=== PATIENT | male | born 1985 | race Two or more races ===

== ENCOUNTER 2019-08-01 10:26 | Inpatient (IN) | payer SELFPAY ==
[2019-08-01] MEDS ORDERED: NORMAL SALINE 1000 ML 1,000 ML IV ONE (10:53)
[2019-08-01 11:01] LABS: HEMATOCRIT 38.1 % (37.9-51.0); HEMOGLOBIN 13.1 g/dL (13.5-17.0); MEAN CORPUSCULAR HEMOGLOBIN 30.6 pg (27.0-33.4); MEAN CORPUSCULAR HGB CONC 34.2 g/dL (32.0-36.0); MEAN CORPUSCULAR VOLUME 89 fl (80-97); PLATELET COUNT 480 10^3/uL (150-450); RED BLOOD COUNT 4.27 10^6/uL (4.35-5.55); RED CELL DISTRIBUTION WIDTH 13.2 % (11.5-14.0); WHITE BLOOD COUNT 16.5 10^3/uL (4.0-10.5)
[2019-08-01 11:17] LABS: VENOUS BLOOD BASE EXCESS 2.8 mmol/L; VENOUS BLOOD PCO2 39.9 mmHg (35-63); VENOUS BLOOD PH 7.45 (7.30-7.42)
[2019-08-01 11:21] LABS: ALBUMIN 3.6 g/dL (3.5-5.0); ALKALINE PHOSPHATASE 90 U/L (38-126); ANION GAP 11 (5-19); ASPARTATE AMINO TRANSFERASE 31 U/L (17-59); BILIRUBIN,DIRECT 0.1 mg/dL (0.0-0.4); BILIRUBIN,TOTAL 0.5 mg/dL (0.2-1.3); BLOOD UREA NITROGEN 15 mg/dL (7-20); CALCIUM 9.1 mg/dL (8.4-10.2); CARBON DIOXIDE 26 mmol/L (22-30); CHLORIDE 98 mmol/L (98-107); CREATINE KINASE 35 U/L (55-170); GLUCOSE 108 mg/dL (75-110); POTASSIUM 4.1 mmol/L (3.6-5.0); TOTAL PROTEIN 7.7 g/dL (6.3-8.2)
--- NOTE | 2019-08-01 11:27 | RADIOLOGY REPORT (SQ) ---
EXAM DESCRIPTION: CHEST SINGLE VIEW IMAGES COMPLETED DATE/TIME: 08/01/2019 11:17 am REASON FOR STUDY: SOB, cough X 2 weeks COMPARISON: None. EXAM PARAMETERS: NUMBER OF VIEWS: One view. TECHNIQUE: Single frontal radiographic view of the chest acquired. RADIATION DOSE: NA LIMITATIONS: None. FINDINGS: LUNGS AND PLEURA: No opacities, masses or pneumothorax. No pleural effusion. MEDIASTINUM AND HILAR STRUCTURES: No masses. Contour normal. HEART AND VASCULAR STRUCTURES: Heart normal in size. Normal vasculature. BONES: No acute findings. HARDWARE: None in the chest. OTHER: No other significant finding. IMPRESSION: NO ACUTE RADIOGRAPHIC FINDING IN THE CHEST. TECHNICAL DOCUMENTATION: JOB ID: [id number] 2010 [employer]- All Rights Reserved Reading location - IP/workstation name: [email or web address]
[2019-08-01 11:48] LABS: ABSOLUTE LYMPHOCYTES# (MANUAL) 1.2 10^3/uL (0.5-4.7); ABSOLUTE MONOCYTES # (MANUAL) 0.8 10^3/uL (0.1-1.4); BASOPHILS % (MANUAL) 0 % (0-2); EOSINOPHILS % (MANUAL) 0 % (0-6); LYMPHOCYTES % (MANUAL) 7 % (13-45); MONOCYTES % (MANUAL) 5 % (3-13); SEGMENTED NEUTROPHILS % (MAN) 88 % (42-78); TOTAL CELLS COUNTED 100
[2019-08-01 11:51] LABS: PLATELET COMMENT ADEQUATE; RBC MORPHOLOGY COMMENT NORMO-CYTIC/CHROMIC
--- NOTE | 2019-08-01 12:18 | RADIOLOGY REPORT (SQ) ---
EXAM DESCRIPTION: CTA CHEST IMAGES COMPLETED DATE/TIME: 08/01/2019 12:08 pm REASON FOR STUDY: TRONCOSO, elevated d-dimer COMPARISON: None. TECHNIQUE: CT scan of the chest performed using helical scanning technique with dynamic intravenous contrast injection. Images reviewed with lung, soft tissue and bone windows. Reconstructed coronal and sagittal MPR images reviewed. Additional 3 dimensional post-processing performed to develop Maximal Intensity Projection images (TN P). All images stored on PACS. All CT scanners at this facility use dose modulation, iterative reconstruction, and/or weight based d osing when appropriate to reduce radiation dose to as low as reasonably achievable (ALARA). [facility]: Dose Right [facility]: CareDose [facility]: Dose Right [facility]: Teradose 4D [facility]: [employer] CONTRAST TYPE AND DOSE: contrast/concentration: Isovue 350.00 mg/ml; Total Contrast Delivered: 51.0 ml; Total Saline Delivered: 70.0 ml Contrast bolus adequate for pulmonary arteries and aorta. RENAL FUNCTION: BUN 15, creatinine 0.69 RADIATION DOSE: CT Rad equipment meets quality standard of care and radiation dose reduction techniq ues were employed. CTDIvol: 13.2 - 14.3 mGy. DLP: 571 mGy-cm. . LIMITATIONS: None. FINDINGS: LUNGS AND PLEURA: There is diffuse bilateral alveolar airspace disease. This could repres ent pneumonia or pulmonary edema. There is both central and peripheral involvement. AORTA AND GREAT VESSELS: No aneurysm. Contrast bolus not optimized for the aorta. HEART: No pericardial effusion. No significant coronary artery calcifications. PULMONARY ARTERIES: No emboli visualized in the main pulmonary arteries or the segmental branches. HILAR AND MEDIASTINAL STRUCTURES: No identified masses or abnormal nodes. HARDWARE: None in the chest. UPPER ABDOMEN: No significant findings. Limited exam. THYROID AND OTHER SOFT TISSUES: No masses. No adenopathy. BONES: No acute or significant finding. 3D MIPS: Confirm above findings. OTHER: No other significant finding. IMPRESSION: 1. No pulmonary emboli. 2. Diffuse bilateral alveolar airspace disease. This could represent pulmonary edema or atypical pn eumonia. There is both peripheral and central involvement. COMMENT: Quality ID # [id number]: Final reports with documentation of one or more dose reduction techniques (e.g., Automated exposure control, adjustment of the mA and/or kV according to patient size, use of iterative reconstruction technique) TECHNICAL DOCUMENTATION: JOB ID: [id number] 2010 [employer]- All Rights Reserved Reading location - IP/workstation name: [email or web address]
[2019-08-01 12:29] LABS: APPEARANCE,URINE SLIGHTLY-CLOUDY; BILIRUBIN,URINE NEGATIVE (NEGATIVE); COLOR,URINE AMBER; GLUCOSE, URINE NEGATIVE (NEGATIVE); KETONES,URINE NEGATIVE (NEGATIVE); LEUKOCYTE ESTERASE,URINE NEGATIVE (NEGATIVE); NITRITE,URINE NEGATIVE (NEGATIVE); PROTEIN,URINE 30 mg/dL (NEGATIVE); URINE SPECIFIC GRAVITY 1.036
[2019-08-01] MEDS ORDERED: PROMETHAZINE HCL INJ 25 MG/1 ML VIAL IV PRN (13:48)
[2019-08-01] MEDS ORDERED: MAGNESIUM HYDROXIDE SUSP 30 ML UDCUP PO PRN (13:48)
[2019-08-01] MEDS ORDERED: ONDANSETRON HCL INJ/PF 4 MG/2 ML SDV IV PRN (13:48)
[2019-08-01] MEDS ORDERED: MAG HYDROX/AL HYDROX/SIMETH SUSP 30 ML UDCUP PO PRN (13:48)
[2019-08-01] MEDS ORDERED: ALBUTEROL SULFATE HFA (90 MCG/PUFF) 8 GM MDI IH PRN (14:01)
[2019-08-01] MEDS ORDERED: ALBUTEROL SULFATE HFA (90 MCG/PUFF) 200 PUFF/8.5 GM MDI IH PRN (14:09)
[2019-08-01] MEDS ORDERED: GUAIFENESIN SYRP 200 MG/10 ML UDC PO PRN (14:29)
--- NOTE | 2019-08-01 14:37 | PDOC H&P ---
History of Present Illness Patient complains of: dyspnea, fever History of Present Illness: YAMILETH CARRENO is a 34 year old male without significant past medical history who presented to the emergency department today with a complaint of 2 weeks of progressively worsening dyspnea and fever. He reports that he has cyclic fevers; occurring at night, with T-max 103. He complains of shortness of breath at rest; significantly worse that with minimal activity, and frequently accompanied by a nonproductive cough. 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 He reports that his significant other was ill with similar symptoms approximately 1 week before he became sick, however, her symptoms lasted only 3 to 4 days. He reports that he was tested negative for COVID19 at an outpatient clinic 7 days ago and was placed on a Z- Iain, prednisone taper, Evaluation in the emergency department today reveals Tachycardia (106) mild hypertension, leukocytosis (WBC 16.5, Seg Neut% 88, Lymphocytes 7, Abs Neut 14.5), d-dimer (1.28) unremarkable chemistry, troponin, proBNP, and urinalysis demonstrating dehydration. CXR unremarkable on read; however on personal review does look subtle pa tchiness. Chest CTA shows diffuse alveolar airspace disease of peripheral and central involvement. He was provided IV fluid bolus and referred to the hospitalist service for admission and management of the above-stated complaints and findings. Past Medical History Medical History: None Past Surgical History Past Surgical History: Reports: None Social History Information Source: Patient Lives with: Spouse/Significant other Smoking Status: Never Smoker Electronic Cigarette use?: No Frequency of Alcohol Use: None Hx Recreational Drug Use: No Hx Prescription Drug Abuse: No - Advance Directive Resuscitation Status: Full Code Family History Family History: None, Reviewed & Not Pertinent Parental Family History Reviewed: Yes Children Family History Reviewed: Yes Sibling(s) Family History Reviewed.: Yes Medication/Allergy Allergies/Adverse Reactions: No Known Allergies Allergy (Verified 08/01/19 10:46) Review of Systems Constitutional: PRESENT: chills, fatigue, fever(s), headache(s). ABSENT: weight gain, weight loss Eyes: ABSENT: visual disturbances Ears: ABSENT: hearing changes Cardiovascular: ABSENT: chest pain, dyspnea on exertion, edema, orthropnea, palpitations Respiratory: PRESENT: cough. ABSENT: hemoptysis Gastrointestinal: PRESENT: diarrhea, nausea, vomiting. ABSENT: abdominal pain, constipation, hematemesis, hematochezia Genitourinary: ABSENT: dysuria, hematuria Musculoskeletal: ABSENT: joint swelling Integumentary: ABSENT: rash, wounds Neurological: ABSENT: abnormal gait, abnormal speech, confusion, dizziness, focal weakness, syncope Psychiatric: ABSENT: anxiety, depression, homidical ideation, suicidal ideation Endocrine: ABSENT: cold intolerance, heat intolerance, polydipsia, polyuria Hematologic/Lymphatic: ABSENT: easy bleeding, easy bruising Physical Exam Vital Signs: Temp Pulse Resp BP Pulse Ox 98.5 F 106 H 20 130/88 H 97 08/01/19 10:47 08/01/19 10:31 08/01/19 10:31 08/01/19 10:31 08/01/19 10:31 Intake & Output 07/31/19 08/01/19 08/02/19 06:59 06:59 06:59 Intake Total 1000 Balance 1000 Weight 59.8 kg General appearance: PRESENT: no acute distress, cooperative, well-developed, well-nourished Head exam: PRESENT: atraumatic, normocephalic Eye exam: PRESENT: conjunctiva pink, EOMI, PERRLA. ABSENT: scleral icterus Mouth exam: PRESENT: moist, tongue midline Throat exam: PRESENT: other - hoarse sounding voice Neck exam: ABSENT: carotid bruit, JVD, lymphadenopathy, thyromegaly Respiratory exam: PRESENT: symmetrical, unlabored, other - shallow respirations, harsh cough. ABSENT: rales, wheezes Cardiovascular exam: PRESENT: RRR. ABSENT: diastolic murmur, rubs, systolic murmur Pulses: PRESENT: normal dorsalis pedis pul Vascular exam: PRESENT: normal capillary refill GI/Abdominal exam: PRESENT: normal bowel sounds, soft. ABSENT: distended, guarding, mass, organolmegaly, rebound, tenderness Rectal exam: PRESENT: deferred Extremities exam: PRESENT: full ROM. ABSENT: calf tenderness, clubbing, pedal edema Neurological exam: PRESENT: alert, awake, oriented to person, oriented to place, oriented to time, oriented to situation, CN II-XII grossly intact. ABSENT: motor sensory deficit Psychiatric exam: PRESENT: anxious, appropriate affect, normal mood. ABSENT: homicidal ideation, suicidal ideation Skin exam: PRESENT: dry, intact, warm. ABSENT: cyanosis, rash Results Laboratory Results: 08/01/19 10:42 08/01/19 10:42 08/01/19 08/01/19 08/01/19 10:42 10:42 10:58 WBC 16.5 H RBC 4.27 L Hgb 13.1 L Hct 38.1 MCV 89 MCH 30.6 MCHC 34.2 RDW 13.2 Plt Count 480 H Seg Neutrophils % Not Reportable VBG pH 7.45 H VBG pCO2 39.9 VBG HCO3 27.0 VBG Base Excess 2.8 Sodium 135.4 L Potassium 4.1 Chloride 98 Carbon Dioxide 26 Anion Gap 11 BUN 15 Creatinine 0.69 Est GFR ( Amer) > 60 Glucose 108 Calcium 9.1 Magnesium 2.3 Total Bilirubin 0.5 AST 31 Alkaline Phosphatase 90 Total Protein 7.7 Albumin 3.6 Urine Color Urine Appearance Urine pH Ur Specific Leslie Urine Protein Urine Glucose (UA) Urine Ketones Urine Blood Urine Nitrite Ur Leukocyte Esterase Urine WBC (Auto) Urine RBC (Auto) 08/01/19 12:10 WBC RBC Hgb Hct MCV MCH MCHC RDW Plt Count Seg Neutrophils % VBG pH VBG pCO2 VBG HCO3 VBG Base Excess Sodium Potassium Chloride Carbon Dioxide Anion Gap BUN Creatinine Est GFR ( Amer) Glucose Calcium Magnesium Total Bilirubin AST Alkaline Phosphatase Total Protein Albumin Urine Color COREY Urine Appearance SLIGHTLY-CLOUDY Urine pH 6.0 Ur Specific Leslie 1.036 Urine Protein 30 H Urine Glucose (UA) NEGATIVE Urine Ketones NEGATIVE Urine Blood NEGATIVE Urine Nitrite NEGATIVE Ur Leukocyte Esterase NEGATIVE Urine WBC (Auto) 4 Urine RBC (Auto) 1 08/01/19 08/01/19 08/01/19 10:42 10:42 10:42 Creatine Kinase 35 L Troponin I < 0.012 NT-Pro-B Natriuret Pep 99 Impressions: Chest X-Ray 08/01/19 10:50 IMPRESSION: NO ACUTE RADIOGRAPHIC FINDING IN THE CHEST. Chest/Abdomen CTA 08/01/19 11:27 IMPRESSION: 1. No pulmonary emboli. 2. Diffuse bilateral alveolar airspace disease. This could represent pulmonary edema or atypical pneumonia. There is both peripheral and central involvement. Assessment and Plan - Diagnosis (1) Pneumonia Qualifiers: Pneumonia type: due to unspecified organism Laterality: bilateral Lung location: unspecified part of lung Qualified Code(s): J18.9 - Pneumonia, unspecified organism Is this a current diagnosis for this admission?: Yes Plan: Patient presents with 14 days of progressively worsening shortness of breath, nonproductive cough, body aches, and fevers. CTA chest shows diffuse alveolar airspace disease of peripheral and central involvement. Treated as an outpatient with oral prednisone and azithromycin; last dose was yesterday. Influenza and COVID pending. Blood and Sputum Cultures pending. We will admit to the medical floor on continuous cardiac telemetry and pulse oximetry. Provide supplemental oxygen as needed to maintain saturations greater than 90%. Start IV Azithromycin and Rocephin; consider escalation pending COVID testing and clinical response. Start scheduled and as needed albuterol MDI. Turn/cough/deep breathe; encourage prone position, incentive spirometer to bedside. Robitussin as needed. (2) Suspected 2019 novel coronavirus infection Is this a current diagnosis for this admission?: Yes Plan: Highly suspicious despite prior outpatient negative testing. Pt with fever, dyspnea, nonproductive cough that have worsened x 14 days; leukocytosis/lymphopenia, elevated d-dimer. Of note, Ferritin is nml. COVID testing pending. Droplet/Contact precautions. Start Vit C, Vit D, Zinc, Melatonin. Remaining management as above. (3) Leukocytosis Qualifiers: Leukocytosis type: unspecified Qualified Code(s): D72.829 - Elevated white blood cell count, unspecified Is this a current diagnosis for this admission?: Yes Plan: Secondary to #1 & 2 Evaluation and management as above. (4) Dehydration Is this a current diagnosis for this admission?: Yes Plan: 1L NS bolus by ED provider. Continue gentle IV fluids. - Time Time Spent with patient: 35 or more minutes Medications reviewed and adjusted accordingly: Yes Anticipated discharge: Home
[2019-08-01] MEDS: CHOLECALCIFEROL (D3) 400 UNIT TABLET PO SCH (14:40)
[2019-08-01] MEDS: ZINC SULFATE 220 MG CAPSULE PO SCH (14:40)
[2019-08-01] MEDS: NORMAL SALINE 1000 ML 1,000 ML IV PRN ×2 (14:47→22:02)
[2019-08-01] MEDS: AZITHROMYCIN 500 MG in DEXTROSE 5%-WATER 250 ML IV SCH (14:49)
[2019-08-01 15:10] LABS: A TYPE INFLUENZA AG NEGATIVE (NEGATIVE); B INFLUENZA AG NEGATIVE (NEGATIVE)
[2019-08-01] MEDS ORDERED: ONDANSETRON HCL INJ/PF 4 MG/2 ML SDV IV ONE (16:12)
[2019-08-01] MEDS ORDERED: ALBUTEROL SULFATE HFA (90 MCG/PUFF) 8 GM MDI IH SCH (18:00)
[2019-08-01] MEDS: ASCORBIC ACID 500 MG TABLET PO SCH (18:31)
--- NOTE | 2019-08-01 18:51 | EKG REPORT ---
SEVERITY:- NORMAL ECG - SINUS RHYTHM ST ELEV, PROBABLE NORMAL EARLY REPOL PATTERN : Confirmed by: Natalie Ayala MD 01-Aug-2019 18:51:17
[2019-08-01] MEDS: CEFTRIAXONE 1 GM/D5W RTU 1 GM/50 ML RTUPB IV SCH (18:55)
[2019-08-01] MEDS: ALBUTEROL SULFATE HFA (90 MCG/PUFF) 200 PUFF/8.5 GM MDI IH SCH (18:58)
[2019-08-01] MEDS ORDERED: LOPERAMIDE HCL 2 MG CAPSULE PO ONE (21:14)
[2019-08-01] MEDS: LACTOBACILLUS ACIDOPHILUS 250 MG TAB PO SCH (21:57)
[2019-08-01] MEDS: FAMOTIDINE 20 MG TABLET PO SCH (21:57)
[2019-08-01] MEDS: ENOXAPARIN SODIUM INJ 60 MG/0.6 ML DISP.SYRIN SUBCUT SCH (22:01)
[2019-08-01] MEDS: MELATONIN 3 MG TABLET PO SCH (22:06)
[2019-08-02] MEDS: ALBUTEROL SULFATE HFA (90 MCG/PUFF) 200 PUFF/8.5 GM MDI IH SCH ×4 (00:17→17:02)
[2019-08-02 04:56] LABS: ABSOLUTE BASOPHILS # (AUTO) 0.1 10^3/uL (0.0-0.2); ABSOLUTE EOSINOPHILS # (AUTO) 0.1 10^3/uL (0.0-0.6); ABSOLUTE LYMPHOCYTES (AUTO) 0.8 10^3/uL (0.5-4.7); ABSOLUTE MONOCYTES (AUTO) 0.5 10^3/uL (0.1-1.4); ABSOLUTE NEUT (AUTO) 11.8 10^3/uL (1.7-8.2); BASOPHILS % (AUTO) 0.6 % (0-2); HEMATOCRIT 34.6 % (37.9-51.0); HEMOGLOBIN 11.9 g/dL (13.5-17.0); MEAN CORPUSCULAR HEMOGLOBIN 30.4 pg (27.0-33.4); MEAN CORPUSCULAR HGB CONC 34.3 g/dL (32.0-36.0); MEAN CORPUSCULAR VOLUME 89 fl (80-97); MONOCYTES % (AUTO) 3.6 % (3-13); PLATELET COUNT 437 10^3/uL (150-450); RED BLOOD COUNT 3.91 10^6/uL (4.35-5.55); RED CELL DISTRIBUTION WIDTH 13.3 % (11.5-14.0); SEGMENTED NEUTROPHILS % (AUTO) 88.8 % (42-78); TOTAL CELLS COUNTED % (AUTO) 100 %; WHITE BLOOD COUNT 13.3 10^3/uL (4.0-10.5)
[2019-08-02 05:11] LABS: ANION GAP 10 (5-19); BLOOD UREA NITROGEN 14 mg/dL (7-20); CALCIUM 8.3 mg/dL (8.4-10.2); CARBON DIOXIDE 22 mmol/L (22-30); CHLORIDE 101 mmol/L (98-107); GLUCOSE 113 mg/dL (75-110); POTASSIUM 4.5 mmol/L (3.6-5.0)
[2019-08-02] MEDS: NORMAL SALINE 1000 ML 1,000 ML IV PRN ×2 (05:56→15:56)
[2019-08-02] MEDS: LACTOBACILLUS ACIDOPHILUS 250 MG TAB PO SCH ×2 (09:45→17:02)
[2019-08-02] MEDS: FAMOTIDINE 20 MG TABLET PO SCH ×2 (09:45→21:47)
[2019-08-02] MEDS: ZINC SULFATE 220 MG CAPSULE PO SCH (09:45)
[2019-08-02] MEDS: ASCORBIC ACID 500 MG TABLET PO SCH ×2 (09:45→17:02)
[2019-08-02] MEDS: CHOLECALCIFEROL (D3) 400 UNIT TABLET PO SCH (09:46)
[2019-08-02] MEDS: ENOXAPARIN SODIUM INJ 60 MG/0.6 ML DISP.SYRIN SUBCUT SCH ×2 (09:46→21:47)
[2019-08-02] MEDS: DOCUSATE SODIUM 100 MG CAPSULE PO SCH (09:46)
[2019-08-02] MEDS: CEFTRIAXONE 1 GM/D5W RTU 1 GM/50 ML RTUPB IV SCH (11:15)
[2019-08-02 11:57] LABS: UNC RESP CORONAVIRUS 229E NOT DETECTED; UNC RESP CORONAVIRUS OC43 NOT DETECTED; UNCRES RHINOVIRUS/ENTEROVIRUS NOT DETECTED
--- NOTE | 2019-08-02 12:23 | PDOC PROGRESS REPORT ---
Subjective Progress Note for:: 08/02/19 Subjective:: YAMILETH CARRENO is a 34 year old male without significant past medical history who was admitted 08/01/2019 with multifocal pneumonia. Patient was seen on morning rounds. He is found resting in bed, lying prone, on room air. He is noted to be tachypneic (RR 22), remaining vital signs are stable. He reports continued dyspnea while at rest that worsens with minimal activity. Complains of productive cough of clear, thin, sputum. T-max 101.0 overnight. He does report his body aches are improved. He denies headache, dizziness, chest pain, palpitations, mela pain, vomiting and diarrhea. He did have emesis overnight; relieved by Zofran. No questions or concerns at this time. Note concerns per nursing. Reason For Visit: LEUKOCYTOSIS,ABNORMAL CHEST CT,PRESUMED COVID-19 Physical Exam Vital Signs: Temp Pulse Resp BP Pulse Ox 99.9 F 120 H 35 H 111/66 95 08/02/19 10:00 08/02/19 08:00 08/02/19 10:07 08/02/19 10:07 08/02/19 10:07 Intake & Output 08/01/19 08/02/19 08/03/19 06:59 06:59 06:59 Intake Total 3624 50 Balance 3624 50 Weight 60.6 kg General appearance: PRESENT: no acute distress, cooperative, thin, well- developed, well-nourished Head exam: PRESENT: atraumatic, normocephalic Eye exam: PRESENT: conjunctiva pink, EOMI, PERRLA. ABSENT: scleral icterus Ear exam: PRESENT: normal external ear exam Mouth exam: PRESENT: moist, tongue midline Neck exam: ABSENT: carotid bruit, JVD, lymphadenopathy, thyromegaly Respiratory exam: PRESENT: clear to auscultation von, symmetrical, tachypnea, unlabored. ABSENT: rales, rhonchi, wheezes Cardiovascular exam: PRESENT: RRR, +S1, +S2. ABSENT: diastolic murmur, rubs, systolic murmur Pulses: PRESENT: normal dorsalis pedis pul Vascular exam: PRESENT: normal capillary refill GI/Abdominal exam: PRESENT: normal bowel sounds, soft. ABSENT: distended, guarding, mass, organolmegaly, rebound, tenderness Rectal exam: PRESENT: deferred Extremities exam: PRESENT: full ROM. ABSENT: calf tenderness, clubbing, pedal edema Neurological exam: PRESENT: alert, awake, oriented to person, oriented to place, oriented to time, oriented to situation, CN II-XII grossly intact. ABSENT: motor sensory deficit Psychiatric exam: PRESENT: appropriate affect, normal mood. ABSENT: homicidal ideation, suicidal ideation Skin exam: PRESENT: dry, intact, warm. ABSENT: cyanosis, rash Results Laboratory Results: 08/02/19 04:45 08/02/19 04:45 08/01/19 08/01/19 08/02/19 10:42 12:10 04:45 WBC 13.3 H RBC 3.91 L Hgb 11.9 L Hct 34.6 L MCV 89 MCH 30.4 MCHC 34.3 RDW 13.3 Plt Count 437 Seg Neutrophils % 88.8 H Sodium Potassium Chloride Carbon Dioxide Anion Gap BUN Creatinine Est GFR ( Amer) Glucose Calcium Ferritin 301.00 Urine Color COREY Urine Appearance SLIGHTLY-CLOUDY Urine pH 6.0 Ur Specific Acra 1.036 Urine Protein 30 H Urine Glucose (UA) NEGATIVE Urine Ketones NEGATIVE Urine Blood NEGATIVE Urine Nitrite NEGATIVE Ur Leukocyte Esterase NEGATIVE Urine WBC (Auto) 4 Urine RBC (Auto) 1 08/02/19 04:45 WBC RBC Hgb Hct MCV MCH MCHC RDW Plt Count Seg Neutrophils % Sodium 133.2 L Potassium 4.5 Chloride 101 Carbon Dioxide 22 Anion Gap 10 BUN 14 Creatinine 0.83 Est GFR ( Amer) > 60 Glucose 113 H Calcium 8.3 L Ferritin Urine Color Urine Appearance Urine pH Ur Specific Acra Urine Protein Urine Glucose (UA) Urine Ketones Urine Blood Urine Nitrite Ur Leukocyte Esterase Urine WBC (Auto) Urine RBC (Auto) 08/01/19 08/01/19 08/01/19 10:42 10:42 10:42 Creatine Kinase 35 L Troponin I < 0.012 NT-Pro-B Natriuret Pep 99 Impressions: Chest X-Ray 08/01/19 10:50 IMPRESSION: NO ACUTE RADIOGRAPHIC FINDING IN THE CHEST. Chest/Abdomen CTA 08/01/19 11:27 IMPRESSION: 1. No pulmonary emboli. 2. Diffuse bilateral alveolar airspace disease. This could represent pulmonary edema or atypical pneumonia. There is both peripheral and central involvement. Assessment and Plan - Diagnosis (1) Pneumonia Qualifiers: Pneumonia type: due to unspecified organism Laterality: bilateral Lung location: unspecified part of lung Qualified Code(s): J18.9 - Pneumonia, unspecified organism Is this a current diagnosis for this admission?: Yes Plan: Patient presents with 14 days of progressively worsening shortness of breath, nonproductive cough, body aches, and fevers. CTA chest shows diffuse alveolar airspace disease of peripheral and central involvement. Treated as an outpatient with oral prednisone and azithromycin; last dose was yesterday. Influenza negative. Rapid COVID negative; sent out for confirmation pending. Respiratory viral panel pending. 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 Blood and Sputum Cultures pending. Patient denies E cigarettes/vaping; low suspicion for vaping injury. We will admit to the medical floor on continuous cardiac telemetry and pulse oximetry. Provide supplemental oxygen as needed to maintain saturations greater than 90%. Continue IV Azithromycin and Rocephin; consider escalation pending COVID testing and clinical response. Continue scheduled and as needed albuterol MDI. Turn/cough/deep breathe; encourage prone position, incentive spirometer to bedside. Robitussin as needed. (2) Suspected 2019 novel coronavirus infection Is this a current diagnosis for this admission?: Yes Plan: Highly suspicious despite prior outpatient negative testing. Pt with fever, dyspnea, nonproductive cough that have worsened x 14 days; leukocytosis/lymphopenia, elevated d-dimer. Of note, Ferritin is nml. COVID testing negative; sent out for confirmation pending. Droplet/Contact precautions. Start Vit C, Vit D, Zinc, Melatonin. Remaining management as above. (3) Leukocytosis Qualifiers: Leukocytosis type: unspecified Qualified Code(s): D72.829 - Elevated white blood cell count, unspecified Is this a current diagnosis for this admission?: Yes Plan: Secondary to #1 & 2 Evaluation and management as above. (4) Dehydration Is this a current diagnosis for this admission?: Yes Plan: Resolved. 1L NS bolus by ED provider. Continue gentle IV fluids. - Time Time Spent with patient: 35 or more minutes Medications reviewed and adjusted accordingly: Yes Anticipated discharge: Home Within: within 48 hours
[2019-08-02] MEDS: AZITHROMYCIN 500 MG in DEXTROSE 5%-WATER 250 ML IV SCH (14:12)
[2019-08-02] MEDS: ACETAMINOPHEN 325 MG TABLET PO PRN (17:16)
[2019-08-02] MEDS ORDERED: IBUPROFEN 600 MG TABLET PO PRN (18:17)
[2019-08-02] MEDS ORDERED: GUAIFENESIN/CODEINE PHOS 100-10 MG/ 5 ML UDC PO PRN (18:18)
[2019-08-02] MEDS: MELATONIN 3 MG TABLET PO SCH (21:48)
[2019-08-03] MEDS: ALBUTEROL SULFATE HFA (90 MCG/PUFF) 200 PUFF/8.5 GM MDI IH SCH ×5 (00:30→23:30)
[2019-08-03] MEDS: NORMAL SALINE 1000 ML 1,000 ML IV PRN ×2 (04:41→17:54)
[2019-08-03 05:52] LABS: HEMATOCRIT 33.6 % (37.9-51.0); HEMOGLOBIN 11.6 g/dL (13.5-17.0); MEAN CORPUSCULAR HEMOGLOBIN 30.7 pg (27.0-33.4); MEAN CORPUSCULAR HGB CONC 34.4 g/dL (32.0-36.0); MEAN CORPUSCULAR VOLUME 89 fl (80-97); PLATELET COUNT 358 10^3/uL (150-450); RED BLOOD COUNT 3.77 10^6/uL (4.35-5.55); RED CELL DISTRIBUTION WIDTH 13.5 % (11.5-14.0); WHITE BLOOD COUNT 7.9 10^3/uL (4.0-10.5)
--- NOTE | 2019-08-03 08:14 | RADIOLOGY REPORT (SQ) ---
EXAM DESCRIPTION: CHEST SINGLE VIEW IMAGES COMPLETED DATE/TIME: 08/03/2019 8:00 am REASON FOR STUDY: dyspnea COMPARISON: 08/01/2019 FINDINGS: One-view chest AP portable upright. Lungs are hyperinflated. Mild interstitial prominence, predominantly in the upper lung gonzalez. Exte nt of disease better defined in CT from 2 days ago. Heart size looks normal and there is no significant vascular congestion or pleural effusion. Depending on clinical presentation, consider atypical pneumonia predominantly. Lung bases are relatively clear. No pneumothorax. TECHNICAL DOCUMENTATION: JOB ID: [id number] Reading location - IP/workstation name: [email or web address]
[2019-08-03] MEDS: DOCUSATE SODIUM 100 MG CAPSULE PO SCH (09:01)
[2019-08-03] MEDS: FAMOTIDINE 20 MG TABLET PO SCH ×2 (10:15→21:24)
[2019-08-03] MEDS: ASCORBIC ACID 500 MG TABLET PO SCH ×2 (10:15→17:50)
[2019-08-03] MEDS: ENOXAPARIN SODIUM INJ 60 MG/0.6 ML DISP.SYRIN SUBCUT SCH ×2 (10:15→21:23)
[2019-08-03] MEDS: ZINC SULFATE 220 MG CAPSULE PO SCH (10:15)
[2019-08-03] MEDS: LACTOBACILLUS ACIDOPHILUS 250 MG TAB PO SCH ×2 (10:15→17:50)
[2019-08-03] MEDS: CHOLECALCIFEROL (D3) 400 UNIT TABLET PO SCH (10:15)
[2019-08-03] MEDS: CEFTRIAXONE 1 GM/D5W RTU 1 GM/50 ML RTUPB IV SCH (11:01)
[2019-08-03] MEDS: AZITHROMYCIN 500 MG in DEXTROSE 5%-WATER 250 ML IV SCH (15:28)
--- NOTE | 2019-08-03 16:53 | PDOC PROGRESS REPORT ---
Subjective Progress Note for:: 08/03/19 Subjective:: YAMILETH CARRENO is a 34 year old male without significant past medical history who was admitted 08/01/2019 with multifocal pneumonia. Patient was seen on afternoon rounds. He is found resting in bed, lying prone, on supplemental oxygen via NC. He reports continued dyspnea while at rest that worsens with minimal activity. Reports that after providing himself a bed bath this morning, he became extremely exhausted and slept several hours to recover. Continues to have productive cough of clear, thin, sputum. He does report that his cough frequency/intensity seemed to improve immediately upon addition of O2 (he was also noted to have a rapid improvement in his RR and HR). He denies headache, dizziness, chest pain, palpitations, mela pain, vomiting and diarrhea. No questions or concerns at this time. Note concerns per nursing. Reason For Visit: LEUKPCYTOSIS,ABNORMAL CHEST CT,PNEUMONIA,SUSPECTED Physical Exam Vital Signs: Temp Pulse Resp BP Pulse Ox 97.8 F 63 15 112/63 100 08/03/19 15:35 08/03/19 15:35 08/03/19 15:35 08/03/19 15:35 08/03/19 15:35 Intake & Output 08/02/19 08/03/19 08/04/19 06:59 06:59 06:59 Intake Total 3624 2956 470 Balance 3624 2956 470 Weight 60.6 kg 60.9 kg General appearance: PRESENT: no acute distress, cooperative, thin, well- developed, well-nourished Head exam: PRESENT: atraumatic, normocephalic Eye exam: PRESENT: conjunctiva pink, EOMI, PERRLA. ABSENT: scleral icterus Mouth exam: PRESENT: moist, tongue midline Respiratory exam: PRESENT: symmetrical, unlabored, wheezes - inspiratory wheeze to right, other - hollow. ABSENT: rales, rhonchi Cardiovascular exam: PRESENT: bradycardia, RRR, +S1. ABSENT: diastolic murmur, rubs, systolic murmur Pulses: PRESENT: normal dorsalis pedis pul Vascular exam: PRESENT: normal capillary refill Extremities exam: PRESENT: full ROM. ABSENT: calf tenderness, clubbing, pedal edema Neurological exam: PRESENT: alert, awake, oriented to person, oriented to place, oriented to time, oriented to situation, CN II-XII grossly intact. ABSENT: motor sensory deficit Psychiatric exam: PRESENT: appropriate affect, normal mood. ABSENT: homicidal ideation, suicidal ideation Skin exam: PRESENT: dry, intact, warm. ABSENT: cyanosis, rash Results Laboratory Results: 08/03/19 05:24 08/02/19 04:45 08/03/19 05:24 WBC 7.9 RBC 3.77 L Hgb 11.6 L Hct 33.6 L MCV 89 MCH 30.7 MCHC 34.4 RDW 13.5 Plt Count 358 08/01/19 08/01/19 08/01/19 10:42 10:42 10:42 Creatine Kinase 35 L Troponin I < 0.012 NT-Pro-B Natriuret Pep 99 Impressions: Chest/Abdomen CTA 08/01/19 11:27 IMPRESSION: 1. No pulmonary emboli. 2. Diffuse bilateral alveolar airspace disease. This could represent pulmonary edema or atypical pneumonia. There is both peripheral and central involvement. Assessment and Plan - Diagnosis (1) Pneumonia Qualifiers: Pneumonia type: due to unspecified organism Laterality: bilateral Lung location: unspecified part of lung Qualified Code(s): J18.9 - Pneumonia, unspecified organism Is this a current diagnosis for this admission?: Yes Plan: Continues to have profound fatigue and dyspnea w/ minimal activity, tachycardia/tachypnea when not on supplemental oxygen, and high grade fevers. TMax 103.0/24 hrs Patient presents with 14 days of progressively worsening shortness of breath, nonproductive cough, body aches, and fevers. CTA chest shows diffuse alveolar airspace disease of peripheral and central involvement. CXR lungs are hyperinflated with mild interstitial prominence, predominantly in the upper lung gonzalez. Influenza negative. Rapid COVID negative; sent out for confirmation pending. 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 Blood culture shows gram (+) cocci clusters (1/4 bottles; likely contaminant) Sputum Cultures shows yeast; not ishan Gold TB pending; low suspicion Patient denies E cigarettes/vaping; low suspicion for vaping injury. We will admit to the medical floor on continuous cardiac telemetry and pulse oximetry. Provide supplemental oxygen. Although patient was maintaining oxygen saturations greater than 90%, upon application of supplemental oxygen via nasal cannula at 2 L/min his HR decreased from an average 120 to 60 and RR from 34 to 16 Continue IV Azithromycin and Rocephin; consider escalation pending COVID testing and clinical response. Difflucan 200 mg daily x 3 days Continue scheduled and as needed albuterol MDI. Turn/cough/deep breathe; encourage prone position, incentive spirometer to bedside. Robitussin as needed. Infectious Disease is consulted. (2) Suspected 2019 novel coronavirus infection Is this a current diagnosis for this admission?: Yes Plan: Highly suspicious despite prior outpatient negative testing. Pt with fever, dyspnea, nonproductive cough that have worsened x 14 days; leukocytosis/lymphopenia, elevated d-dimer. Of note, Ferritin is nml. COVID testing negative; sent out for confirmation pending. Droplet/Contact precautions. Start Vit C, Vit D, Zinc, Melatonin. Full dose Lovenox Remaining management as above. (3) Leukocytosis Qualifiers: Leukocytosis type: unspecified Qualified Code(s): D72.829 - Elevated white blood cell count, unspecified Is this a current diagnosis for this admission?: Yes Plan: Resolved. Secondary to #1 & 2 Evaluation and management as above. (4) Dehydration Is this a current diagnosis for this admission?: Yes Plan: Resolved. 1L NS bolus by ED provider. Continue gentle IV fluids. - Time Time Spent with patient: 25-34 minutes Medications reviewed and adjusted accordingly: Yes Anticipated discharge: Home
[2019-08-03] MEDS: ACETAMINOPHEN 325 MG TABLET PO PRN (21:24)
[2019-08-03] MEDS: MELATONIN 3 MG TABLET PO SCH (21:24)
[2019-08-04] MEDS: ACETAMINOPHEN 325 MG TABLET PO PRN (04:56)
[2019-08-04] MEDS: ALBUTEROL SULFATE HFA (90 MCG/PUFF) 200 PUFF/8.5 GM MDI IH SCH ×2 (06:39→12:13)
[2019-08-04 06:47] LABS: HEMATOCRIT 34.5 % (37.9-51.0); HEMOGLOBIN 12.1 g/dL (13.5-17.0); MEAN CORPUSCULAR VOLUME 89 fl (80-97); PLATELET COUNT 412 10^3/uL (150-450); RED BLOOD COUNT 3.89 10^6/uL (4.35-5.55); RED CELL DISTRIBUTION WIDTH 13.5 % (11.5-14.0); WHITE BLOOD COUNT 8.4 10^3/uL (4.0-10.5)
[2019-08-04 09:34] LABS: APPEARANCE,URINE CLEAR; BILIRUBIN,URINE NEGATIVE (NEGATIVE); COLOR,URINE STRAW; GLUCOSE, URINE NEGATIVE (NEGATIVE); KETONES,URINE NEGATIVE (NEGATIVE); LEUKOCYTE ESTERASE,URINE NEGATIVE (NEGATIVE); NITRITE,URINE NEGATIVE (NEGATIVE); PROTEIN,URINE NEGATIVE (NEGATIVE); URINE SPECIFIC GRAVITY 1.008; UROBILINOGEN,URINE NEGATIVE mg/dL (<2.0)
[2019-08-04] MEDS ORDERED: PREDNISONE 20 MG TABLET PO SCH (10:00)
[2019-08-04] MEDS: FAMOTIDINE 20 MG TABLET PO SCH (10:03)
[2019-08-04] MEDS: ZINC SULFATE 220 MG CAPSULE PO SCH (10:03)
[2019-08-04] MEDS: CHOLECALCIFEROL (D3) 400 UNIT TABLET PO SCH (10:03)
[2019-08-04] MEDS: ENOXAPARIN SODIUM INJ 60 MG/0.6 ML DISP.SYRIN SUBCUT SCH (10:03)
[2019-08-04] MEDS: ASCORBIC ACID 500 MG TABLET PO SCH (10:03)
[2019-08-04] MEDS: DOCUSATE SODIUM 100 MG CAPSULE PO SCH (10:04)
[2019-08-04] MEDS: LACTOBACILLUS ACIDOPHILUS 250 MG TAB PO SCH (10:06)
[2019-08-04] MEDS: CEFTRIAXONE 1 GM/D5W RTU 1 GM/50 ML RTUPB IV SCH (12:12)
[2019-08-04 15:54] VITALS: BP 112/74
[2019-08-04] MEDS: AZITHROMYCIN 500 MG in DEXTROSE 5%-WATER 250 ML IV SCH (16:41)
[2019-08-04] MEDS ORDERED: FLUCONAZOLE 100 MG TABLET PO SCH (17:00)
--- NOTE | 2019-08-04 18:50 | PDOC DISCHARGE SUMMARY ---
Impression - Admit/DC Date/PCP Admission Date/Primary Care Provider: 08/01/19 13:56 Discharge Date: 08/04/19 - Discharge Diagnosis (1) Pneumonia Is this a current diagnosis for this admission?: Yes (2) Suspected 2019 novel coronavirus infection Is this a current diagnosis for this admission?: Yes (3) Leukocytosis Is this a current diagnosis for this admission?: Yes (4) Dehydration Is this a current diagnosis for this admission?: Yes (5) Pneumonitis Is this a current diagnosis for this admission?: Yes - Additional Information Resuscitation Status: Full Code Discharge Diet: Regular Discharge Activity: Activity As Tolerated, Balance Activity w/Rest Referrals: SLIME NOBLE MD [ACTIVE STAFF] - (Follow up w/ Dr. Noble at the earliest available appointment for further evaluaion of/for viral pneumonitis vs vasculitis) AYLA CALDERON MD [ACTIVE STAFF] - (Sticker put in book for follow-up. [id number]) Prescriptions: Methylprednisolone [Medrol Dosepack (4 mg/Tab) 21 Tab/Dosepak] 4 mg PO ASDIR PRN #21 tab.ds.pk PRN Reason: Albuterol Sulfate [Proair HFA Inhalation Aerosol 8.5 gm MDI] 2 puff IH Q4HP PRN #1 hfa.[email or web address] PRN Reason: Home Medications: Acetaminophen [Tylenol 325 mg Tablet] 650 mg PO Q4HP PRN tablet 08/04/19 Albuterol Sulfate [Proair HFA Inhalation Aerosol 8.5 gm MDI] 2 puff IH Q4HP PRN #1 hfa.aer.ad 08/04/19 Methylprednisolone [Medrol Dosepack (4 mg/Tab) 21 Tab/Dosepak] 4 mg PO ASDIR PRN #21 tab.ds.pk 08/04/19 History of Present Illiness History of Present Illness: YAMILETH CARRENO is a 34 year old male without significant past medical history who presented to the emergency department today with a complaint of 2 weeks of progressively worsening dyspnea and fever. He reports that he has cyclic fevers; occurring at night, with T-max 103. He complains of shortness of breath at rest; significantly worse that with minimal activity, and frequently accompanied by a nonproductive cough. 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 He reports that his significant other was ill with similar symptoms approximately 1 week before he became sick, however, her symptoms lasted only 3 to 4 days. He reports that he was tested negative for COVID19 at an outpatient clinic 7 days ago and was placed on a Z- Iain, prednisone taper, Evaluation in the emergency department today reveals Tachycardia (106) mild hypertension, leukocytosis (WBC 16.5, Seg Neut% 88, Lymphocytes 7, Abs Neut 14.5), d-dimer (1.28) unremarkable chemistry, troponin, proBNP, and urinalysis demonstrating dehydration. CXR unremarkable on read; however on personal review does look subtle patchiness. Chest CTA shows diffuse alveolar airspace disease of peripheral and central involvement. He was provided IV fluid bolus and referred to the hospitalist service for admission and management of the above-stated complaints and findings. Hospital Course Hospital Course: (1) Pneumonia Significantly improved. Continues to have fatigue and dyspnea w/ activity, though significantly improved. Tachycardia/tachypnea when not on supplemental oxygen has resolved. Afebrile x 24 hrs. TMax 103.0/48 hrs Patient presented with 14 days of progressively worsening shortness of breath, nonproductive cough, body aches, and fevers. CTA chest shows diffuse alveolar airspace disease of peripheral and central involvement. CXR lungs are hyperinflated with mild interstitial prominence, predominantly in the upper lung gonzalez. Influenza negative. Rapid COVID negative; sent out for confirmation also negative. Respiratory viral panel negative Legionella negative. Blood culture shows staph epi. (1/4 bottles) Sputum Cultures shows yeast; not ishan Gold TB pending; low suspicion HIV negative Patient denies E cigarettes/vaping; low suspicion for vaping injury. He was admitted to the medical floor on continuous cardiac telemetry and pulse oximetry. He was provided supplemental oxygen for symptom management with rapid improvement in tachycardia and tachypnea. Oxygen was weaned as tolerated; he is now ambulatory on room air without hypoxia, tachypnea, or tachycardia. He did report mild dyspnea. He was placed on IV Azithromycin and Rocephin; no indications for antibiotic therapy following discharge. Between his outpatient Z-Iain and azithromycin received during this admission he has received 8 days of azithromycin in the last week and a half. Difflucan 200 mg x1 for yeast noted on sputum culture. He was provided scheduled and as needed albuterol MDI; refill prescription provided at discharge. Turn/cough/deep breathe; encourage prone position, incentive spirometer to bedside. Robitussin as needed. (2) Suspected 2019 novel coronavirus infection Highly suspicious despite negative testing. Pt with fever, dyspnea, nonproductive cough that have worsened x 14 days; leukocytosis/lymphopenia, elevated d-dimer. Of note, Ferritin is nml. COVID testing negative Send out COVID testing also negative. This patient has tested negative for COVID 3 times He was placed on Vit C, Vit D, Zinc, Melatonin. Full dose Lovenox during admission; no need for outpatient anticoagulant as CTA was negative for PE. Remaining management as above. (3) Leukocytosis Resolved. Secondary to #1 & 2 Evaluation and management as above. (4) Dehydration Resolved. 1L NS bolus by ED provider. Continue gentle IV fluids. (5) Pneumonitis Questionable viral pneumonitis vs pulmonary vasculitis vs ANCA. ESR 118, CRP 153 ANCA panel pending Discharged with Merdol dose pack. Strongly recommend pulmonology follow up. Physical Exam Vital Signs: Temp Pulse Resp BP Pulse Ox 97.5 F 66 18 112/74 100 08/04/19 15:53 08/04/19 15:53 08/04/19 15:53 08/04/19 15:53 08/04/19 15:53 Intake & Output 08/03/19 08/04/19 08/05/19 06:59 06:59 06:59 Intake Total 2956 3142 1520 Balance 2956 3142 1520 Weight 60.9 kg 60.6 kg General appearance: PRESENT: no acute distress, cooperative, thin, well- developed, well-nourished Head exam: PRESENT: atraumatic, normocephalic Eye exam: PRESENT: conjunctiva pink, EOMI, PERRLA. ABSENT: scleral icterus Ear exam: PRESENT: normal external ear exam Mouth exam: PRESENT: moist, tongue midline Respiratory exam: PRESENT: clear to auscultation von, symmetrical, unlabored, other - hollow. Maintaing 02 sat while ambulating on RA.. ABSENT: rales, rhonchi, wheezes Cardiovascular exam: PRESENT: RRR. ABSENT: diastolic murmur, rubs, systolic murmur Pulses: PRESENT: normal dorsalis pedis pul Vascular exam: PRESENT: normal capillary refill GI/Abdominal exam: PRESENT: normal bowel sounds, soft. ABSENT: distended, guarding, mass, organolmegaly, rebound, tenderness Rectal exam: PRESENT: deferred Extremities exam: PRESENT: full ROM. ABSENT: calf tenderness, clubbing, pedal edema Musculoskeletal exam: PRESENT: ambulatory Neurological exam: PRESENT: alert, awake, oriented to person, oriented to place, oriented to time, oriented to situation, CN II-XII grossly intact. ABSENT: motor sensory deficit Psychiatric exam: PRESENT: appropriate affect, normal mood. ABSENT: homicidal ideation, suicidal ideation Skin exam: PRESENT: dry, intact, warm. ABSENT: cyanosis, rash Results Laboratory Results: WBC 8.4 10^3/uL (4.0-10.5) 08/04/19 06:36 RBC 3.89 10^6/uL (4.35-5.55) L 08/04/19 06:36 Hgb 12.1 g/dL (13.5-17.0) L 08/04/19 06:36 Hct 34.5 % (37.9-51.0) L 08/04/19 06:36 MCV 89 fl (80-97) 08/04/19 06:36 MCH 31.0 pg (27.0-33.4) 08/04/19 06:36 MCHC 35.0 g/dL (32.0-36.0) 08/04/19 06:36 RDW 13.5 % (11.5-14.0) 08/04/19 06:36 Plt Count 412 10^3/uL (150-450) 08/04/19 06:36 Lymph % (Auto) 6.0 % (13-45) L 08/02/19 04:45 [place] % (Auto) 3.6 % (3-13) 08/02/19 04:45 Eos % (Auto) 1.0 % (0-6) 08/02/19 04:45 Baso % (Auto) 0.6 % (0-2) 08/02/19 04:45 Absolute Neuts (auto) 11.8 10^3/uL (1.7-8.2) H 08/02/19 04:45 Absolute Lymphs (auto) 0.8 10^3/uL (0.5-4.7) 08/02/19 04:45 Absolute Monos (auto) 0.5 10^3/uL (0.1-1.4) 08/02/19 04:45 Absolute Eos (auto) 0.1 10^3/uL (0.0-0.6) 08/02/19 04:45 Absolute Basos (auto) 0.1 10^3/uL (0.0-0.2) 08/02/19 04:45 Total Counted 100 08/01/19 10:42 Seg Neutrophils % 88.8 % (42-78) H 08/02/19 04:45 Seg Neuts % (Manual) 88 % (42-78) H 08/01/19 10:42 Lymphocytes % (Manual) 7 % (13-45) L 08/01/19 10:42 Monocytes % (Manual) 5 % (3-13) 08/01/19 10:42 Eosinophils % (Manual) 0 % (0-6) 08/01/19 10:42 Basophils % (Manual) 0 % (0-2) 08/01/19 10:42 Abs Neuts (Manual) 14.5 10^3/uL (1.7-8.2) H 08/01/19 10:42 Abs Lymphs (Manual) 1.2 10^3/uL (0.5-4.7) 08/01/19 10:42 Abs Monocytes (Manual) 0.8 10^3/uL (0.1-1.4) 08/01/19 10:42 Absolute Eos (Manual) 0.0 10^3/uL (0.0-0.6) 08/01/19 10:42 Abs Basophils (Manual) 0.0 10^3/uL (0.0-0.2) 08/01/19 10:42 Platelet Comment ADEQUATE 08/01/19 10:42 RBC Morph Comment NORMO-CYTIC/CHROMIC 08/01/19 10:42 ESR 118 mm/hr (0-15) H 08/04/19 11:38 D-Dimer 1.28 ug/mL (0.00-0.50) H 08/01/19 10:42 VBG pH 7.45 (7.30-7.42) H 08/01/19 10:58 VBG pCO2 39.9 mmHg (35-63) 08/01/19 10:58 VBG HCO3 27.0 mmol/L (20-32) 08/01/19 10:58 VBG Base Excess 2.8 mmol/L 08/01/19 10:58 Sodium 133.2 mmol/L (137-145) L 08/02/19 04:45 Potassium 4.5 mmol/L (3.6-5.0) 08/02/19 04:45 Chloride 101 mmol/L (98-107) 08/02/19 04:45 Carbon Dioxide 22 mmol/L (22-30) 08/02/19 04:45 Anion Gap 10 (5-19) 08/02/19 04:45 BUN 14 mg/dL (7-20) 08/02/19 04:45 Creatinine 0.83 mg/dL (0.52-1.25) 08/02/19 04:45 Est GFR ( Amer) > 60 (>60) 08/02/19 04:45 Est GFR (MDRD) Non-Af > 60 (>60) 08/02/19 04:45 Glucose 113 mg/dL (75-110) H 08/02/19 04:45 Calcium 8.3 mg/dL (8.4-10.2) L 08/02/19 04:45 Magnesium 2.3 mg/dL (1.6-2.3) 08/01/19 10:42 Ferritin 301.00 ng/mL (17.9-464.0) 08/01/19 10:42 Total Bilirubin 0.5 mg/dL (0.2-1.3) 08/01/19 10:42 Direct Bilirubin 0.1 mg/dL (0.0-0.4) 08/01/19 10:42 Neonat Total Bilirubin Not Reportable 08/01/19 10:42 Neonat Direct Bilirubin Not Reportable 08/01/19 10:42 Neonat Indirect Bili Not Reportable 08/01/19 10:42 AST 31 U/L (17-59) 08/01/19 10:42 ALT 47 U/L (<50) 08/01/19 10:42 Alkaline Phosphatase 90 U/L (38-126) 08/01/19 10:42 Creatine Kinase 35 U/L (55-170) L 08/01/19 10:42 Troponin I < 0.012 ng/mL 08/01/19 10:42 C-Reactive Protein 153.0 mg/L (<10.0) H 08/04/19 11:38 NT-Pro-B Natriuret Pep 99 pg/mL (<125) 08/01/19 10:42 Total Protein 7.7 g/dL (6.3-8.2) 08/01/19 10:42 Albumin 3.6 g/dL (3.5-5.0) 08/01/19 10:42 Urine Color STRAW 08/04/19 08:55 Urine Appearance CLEAR 08/04/19 08:55 Urine pH 7.0 (5.0-9.0) 08/04/19 08:55 Ur Specific [place] 1.008 08/04/19 08:55 Urine Protein NEGATIVE mg/dL (NEGATIVE) 08/04/19 08:55 Urine Glucose (UA) NEGATIVE mg/dL (NEGATIVE) 08/04/19 08:55 Urine Ketones NEGATIVE mg/dL (NEGATIVE) 08/04/19 08:55 Urine Blood NEGATIVE (NEGATIVE) 08/04/19 08:55 Urine Nitrite NEGATIVE (NEGATIVE) 08/04/19 08:55 Urine Bilirubin NEGATIVE (NEGATIVE) 08/04/19 08:55 Urine Urobilinogen NEGATIVE mg/dL (<2.0) 08/04/19 08:55 Ur Leukocyte Esterase NEGATIVE (NEGATIVE) 08/04/19 08:55 Urine WBC (Auto) 2 /HPF 08/04/19 08:55 Urine RBC (Auto) 2 /HPF 08/04/19 08:55 Urine Bacteria (Auto) 3+ /HPF 08/04/19 08:55 Urine Mucus (Auto) RARE /LPF 08/04/19 08:55 Urine Ascorbic Acid NEGATIVE (NEGATIVE) 08/04/19 08:55 Chlamy pneumoniae PCR NOT DETECTED 08/02/19 11:50 Adenovirus (PCR) NOT DETECTED 08/02/19 11:50 B. pertussis DNA (PCR) NOT DETECTED 08/02/19 11:50 B.parapertussis DNA PCR NOT DETECTED 08/02/19 11:50 Coronavirus OC43 (PCR) NOT DETECTED 08/02/19 11:50 Coronavirus HKU1 (PCR) NOT DETECTED 08/02/19 11:50 Coronavirus 229E (PCR) NOT DETECTED 08/02/19 11:50 COVID-19 Source NASOPHARYNGEAL 08/01/19 23:11 COVID-19 (CANDIDA) NOT DETECTED 08/01/19 23:11 Coronavirus NL63 (PCR) NOT DETECTED 08/02/19 11:50 HIV 1&2 Antibody NEGATIVE (NEGATIVE) 08/02/19 04:45 Human Metapneumovir PCR NOT DETECTED 08/02/19 11:50 Influenza A (Rapid) NEGATIVE (NEGATIVE) 08/01/19 14:15 Influenza A (H1) PCR NOT DETECTED 08/02/19 11:50 Influ A (H1N1/09) PCR NOT DETECTED 08/02/19 11:50 Influenza A (H3) PCR NOT DETECTED 08/02/19 11:50 Influenza Type A (PCR) NOT DETECTED 08/02/19 11:50 Influenza B (Rapid) NEGATIVE (NEGATIVE) 08/01/19 14:15 Influenza Type B (PCR) NOT DETECTED 08/02/19 11:50 M. pneumoniae (PCR) NOT DETECTED 08/02/19 11:50 Parainfluenza 1 (PCR) NOT DETECTED 08/02/19 11:50 Parainfluenza 2 (PCR) NOT DETECTED 08/02/19 11:50 Parainfluenza 3 (PCR) NOT DETECTED 08/02/19 11:50 Parainfluenza 4 (PCR) NOT DETECTED 08/02/19 11:50 RSV (PCR) NOT DETECTED 08/02/19 11:50 Entero/Rhino (PCR) NOT DETECTED 08/02/19 11:50 SARS-CoV-2 (PCR) NEGATIVE (NEGATIVE) 08/01/19 12:32 08/01/19 08/01/19 10:42 10:42 Troponin I < 0.012 NT-Pro-B Natriuret Pep 99 Impressions: Chest X-Ray 08/01/19 10:50 IMPRESSION: NO ACUTE RADIOGRAPHIC FINDING IN THE CHEST. Chest/Abdomen CTA 08/01/19 11:27 IMPRESSION: 1. No pulmonary emboli. 2. Diffuse bilateral alveolar airspace disease. This could represent pulmonary edema or atypical pneumonia. There is both peripheral and central involvement. Plan Plan of Treatment: Patient is discharged home in stable condition. He is instructed to establish with a primary care provider and to follow-up at the earliest available appointment. He is advised of the importance of following up with pulmonology; referral provided to Dr. Noble. Recommend earliest available appointment. Take medication as prescribed. Eat a heart healthy diet. Do NOT smoke or Vap. Return to emergency department as needed for concerning symptoms. Time Spent: Greater than 30 Minutes Stroke Is this a Stroke Patient?: No Acute Heart Failure - Is this a Heart Failure Patient?: No
--- NOTE | 2019-08-05 08:15 | ER Document Report ---
Entered by RUSS HUBER SCRIBE 08/01/19 1049 Acting as scribe for:ELEONORA VILLALPANDO MD ED Respiratory Problem - General Chief Complaint: Cold Symptoms Stated Complaint: COUGH Time Seen by Provider: 08/01/19 10:35 Mode of Arrival: Ambulatory Information source: Patient Notes: This 34 year old male patient presents to the emergency department today with complaints of shortness of breath and a dry non-productive cough for the last two weeks. Patient was tested for COVID-19 and was called today with negative results. Patient states he went to an urgent care about 5 days ago and he was started on a Z-Iain, prednisone, and an albuterol inhaler. Patient states that when he becomes active or exerts himself he becomes increasingly short of breath and his cough becomes worse. Patient states that despite being quarantined and not doing much last few days he feels like he has gotten progressively worse since onset. - Related Data Allergies/Adverse Reactions: No Known Allergies Allergy (Verified 08/01/19 10:46) Past Medical History - General Information source: Patient - Social History Smoking Status: Never Smoker Cigarette use (# per day): No Frequency of alcohol use: None Drug Abuse: None Occupation: [employer] Family History: Reviewed & Not Pertinent - Medical History Medical History: Negative Surgical Hx: Negative Review of Systems - Review of Systems Constitutional: No symptoms reported EENT: No symptoms reported Cardiovascular: No symptoms reported Respiratory: See HPI, Cough, Short of breath, Wheezing Gastrointestinal: No symptoms reported Genitourinary: No symptoms reported Male Genitourinary: No symptoms reported Musculoskeletal: No symptoms reported Skin: No symptoms reported Hematologic/Lymphatic: No symptoms reported Neurological/Psychological: No symptoms reported -: Yes All other systems reviewed and negative Physical Exam - Vital signs Vitals: Temp Pulse Resp BP Pulse Ox 98.5 F 106 H 20 130/88 H 97 08/01/19 10:31 08/01/19 10:31 08/01/19 10:31 08/01/19 10:31 08/01/19 10:31 - Notes Notes: Physical Exam: General: Alert, hoarse sounding voice. HEENT: Normocephalic. Atraumatic. PERRL. Extraocular movements intact. Oropharynx clear. Neck: Supple. Non-tender. Respiratory: No respiratory distress. Dry harsh sounding cough. Oxygen saturation of 97% on room air. Cardiovascular: Regular rate and rhythm. Abdominal: Normal Inspection. Non-tender. No distension. Normal Bowel Sounds. Back: No gross abnormalities. Extremities: Moves all four extremities. Upper extremities: Normal inspection. Normal ROM. Lower extremities: Normal inspection. No edema. Normal ROM. Neurological: Normal cognition. AAOx4. Normal speech. Psychological: Normal affect. Normal Mood. Skin: Warm. Dry. Normal color. Course - Vital Signs Vital signs: Temp Pulse Resp BP Pulse Ox 97.5 F 66 18 112/74 100 08/04/19 15:53 08/04/19 15:53 08/04/19 15:53 08/04/19 15:53 08/04/19 15:53 - Laboratory Result Diagrams: 08/04/19 06:36 08/02/19 04:45 Laboratory results interpreted by me: 08/01/19 08/01/19 08/01/19 10:42 10:42 10:42 WBC 16.5 H RBC 4.27 L Hgb 13.1 L Plt Count 480 H Seg Neuts % (Manual) 88 H Lymphocytes % (Manual) 7 L Abs Neuts (Manual) 14.5 H D-Dimer 1.28 H VBG pH Sodium 135.4 L Creatine Kinase 35 L Urine Protein Urine Urobilinogen 08/01/19 08/01/19 10:58 12:10 WBC RBC Hgb Plt Count Seg Neuts % (Manual) Lymphocytes % (Manual) Abs Neuts (Manual) D-Dimer VBG pH 7.45 H Sodium Creatine Kinase Urine Protein 30 H Urine Urobilinogen 2.0 H - Diagnostic Test Radiology reviewed: Image reviewed, Reports reviewed - CTA chest shows diffuse bilateral alveolar airspace disease which is both peripheral and central. Could represent pulmonary edema or atypical pneumonia. - EKG Interpretation by Md EKG shows normal: Sinus rhythm, [place], Intervals, QRS Complexes. abnormal: ST-T Waves - ST changes consistent with early repolarization pattern Rate: Normal - 85 Rhythm: NSR - Consults Lilly Núñez NP Time consulted: 13:00 Consulted provider: will come to ER Discharge - Discharge Clinical Impression: Elevated d-dimer Pneumonia Qualifiers: Pneumonia type: due to unspecified organism Laterality: bilateral Lung location: unspecified part of lung Qualified Code(s): J18.9 - Pneumonia, unspecified organism Leukocytosis Qualifiers: Leukocytosis type: other Qualified Code(s): D72.828 - Other elevated white blood cell count Dyspnea Qualifiers: Dyspnea type: shortness of breath Qualified Code(s): R06.02 - Shortness of breath; R06.00 - Dyspnea, unspecified; R06.01 - Orthopnea Condition: Stable Disposition: ADMITTED INPATIENT Admitting Provider: Francie (Hospitalist) - Lilly Núñez NP writing orders Unit Admitted: Telemetry I personally performed the services described in the documentation, reviewed and edited the documentation which was dictated to the scribe in my presence, and it accurately records my words and actions.
[2019-08-06 16:37] LABS: ANTIMYELOPEROXIDASE (MPO) AB <9.0 U/mL (0.0-9.0); CYTOPLASMIC (C-ANCA) <1:20 titer (Neg:<1:20)
[2019-08-07 07:07] LABS: ATYPICAL PANCA <1:20 titer (Neg:<1:20)
== END 2019-08-04 16:35 | disposition home or self-care (01) | DRG 195 ==
LOC: ER 10:26 → EH 13:56 → OBSVTOIN 13:56 → ICU 16:12 → 3N 08-02 15:32 → 3W 08-04 09:12
PROVIDERS: ADMIT Family Medicine; ATTEND Registered Nurse
DX: J18.9 Pneumonia, unspecified organism (principal); Z20.828 Contact with and (suspected) exposure to other viral communicable diseases; E86.0 Dehydration; Z03.818 Encounter for observation for suspected exposure to other biological agents ruled out
CPT/HCPCS: 0099U; 36415; 71045; 71275; 80048; 80053; 81001; 82550; 82728; 82803; 83516; 83735; 83880; 84484; 85025; 85027; 85379; 85652; 86140; 86256; 86480; 86701; 87040; 87070; 87077; 87186; 87205; 87635; 87804; 93005; 93010; 96360; 99285; G0378; J0456; J0696; J1650; J2405; J3490; J7030; J7060; J7512